=== PATIENT | male | born 1975 | race African-American/Black ===

== ENCOUNTER 2022-12-21 06:58 | Day surgery (SDC) | payer OTHER ==
[~2022-12-21] VITALS: Ht 175.3 cm; Wt 70.5 kg
[2022-12-21 07:34] LABS: COVID AG,FIA SOURCE NASOPHARYNGEAL
[2022-12-21] MEDS ORDERED: SODIUM CHLORIDE 0.9% 1,000 ML IV ONE (08:00)
[2022-12-21] MEDS ORDERED: SODIUM PHOS/SODIUM BIPHOS 133 ML ENEMA PR ONE (09:45)
[2022-12-21] MEDS ORDERED: PROPOFOL 1% 20 ML VIAL IVP ONE (12:00)
== END 2022-12-21 12:40 | disposition home or self-care (01) ==
LOC: SURGERY 06:58
PROVIDERS: ATTEND Surgery
DX: R19.5 Other fecal abnormalities (principal); D12.5 Benign neoplasm of sigmoid colon; K57.30 Diverticulosis of large intestine without perforation or abscess without bleeding; Z20.822 Contact with and (suspected) exposure to COVID-19; Z79.899 Other long term (current) drug therapy
CPT/HCPCS: 44389; 45330; 87426; 88305; C1769; J2704; C9803